=== PATIENT | male | born 1940 | race Caucasian/White ===

== ENCOUNTER 2017-05-01 09:16 | Day surgery (SDC) | payer OTHER ==
[2017-05-01] MEDS ORDERED: ASPIRIN EC 325 MG TAB PO ONE ×2 (09:17→10:08)
[2017-05-01] MEDS ORDERED: FAMOTIDINE 20 MG TAB PO ONE (09:17)
[2017-05-01] MEDS ORDERED: NS 1,000 ML IV ONE (09:17)
[2017-05-01] MEDS ORDERED: DIAZEPAM 5 MG TAB PO ONE (09:17)
[2017-05-01] MEDS ORDERED: diphenhydrAMINE 25 MG CAP PO ONE ×2 (09:17→10:07)
--- NOTE | 2017-05-01 09:45 | CPEKG ---
Heart Rate: 85 RR Interval: 706 P-R Interval: 188 QRSD Interval: 94 QT Interval: 368 QTC Interval: 438 P [place]: 72 QRS [place]: 2 T Wave [place]: 57 EKG Severity - BORDERLINE ECG - EKG Impression: SINUS RHYTHM EKG Impression: BORDERLINE R WAVE PROGRESSION, ANTERIOR LEADS Electronically Signed By: Andres Kaur 01-May-2017 15:52:31
[2017-05-01] MEDS ORDERED: FAMOTIDINE 20 MG TAB ONE (10:08)
[2017-05-01] MEDS ORDERED: DIAZEPAM 5 MG TAB ONE (10:08)
[2017-05-01 10:23] LABS: % IMMATURE GRANULYOCYTES 0.2 % (0.0-1.1); ABSOLUTE IMMATURE GRANULOCYTES 0.01 10^3/uL (0.00-0.10); ADD DIFF? NO; ADD MORPH? NO; ADD SCAN? NO; ATYPICAL LYMPHOCYTE FLAG 10 (0-99); FRAGMENT RBC FLAG 0 (0-99); HEMATOCRIT 41.1 % (40.0-51.0); HEMOGLOBIN 13.4 g/dL (13.7-17.5); LEFT SHIFT FLG 0 (0-99); LIPEMIA HEMOLYSIS FLAG 80 (0-99); MEAN CELL HEMOGLOBIN 31.8 pg (27.9-34.1); MEAN CELL HEMOGLOBIN CONCENTR. 32.6 g/dL (32.4-36.7); MEAN CELL VOLUME 97.4 fL (81.5-99.8); MEAN PLATELET VOLUME 10.5 fL (8.7-11.7); PLATELET CLUMPS FLAG 0 (0-99); PLATELET COUNT 153 10^3/uL (150-400); RED BLOOD CELL COUNT 4.22 10^6/uL (4.40-6.38); RED CELL DISTRIBUTION WIDTH 14.9 % (11.5-15.2)
[2017-05-01 10:34] LABS: INR 1.26 (0.83-1.16); PROTIME(PATIENT) 15.8 SEC (12.0-15.0)
[2017-05-01 10:48] LABS: ANION GAP 11 mEq/L (8-16); CALCIUM 9.3 mg/dL (8.5-10.4); CARBON DIOXIDE 25 mEq/l (22-31); CHLORIDE 105 mEq/L (97-110); CHOLESTEROL 132 mg/dL (140-220); CHOLESTEROL/HDL RATIO 2.81 RATIO (1.00-4.97); GLOMERULAR FILTRATION RATE > 60; GLUCOSE 120 mg/dL (70-100); HIGH DENSITY LIPOPROTEIN 47 mg/dL (40-65); LDL/HDL RATIO 1.38 RATIO (1.00-3.64); LOW DENSITY LIPOPROTEIN 65 mg/dL (80-100); MAGNESIUM 1.2 mg/dL (1.6-2.3); NON-HIGH DENSITY LIPOPROTEIN 85 mg/dL (90-129); POTASSIUM 5.5 mEq/L (3.5-5.2); SODIUM 141 mEq/L (134-144); TRIGLYCERIDE 100 mg/dL (40-150); VERY LOW DENSITY LIPOPROTEINS 20 mg/dL (8-25)
[2017-05-01] MEDS ORDERED: fentaNYL 100 MCG/2 ML INJ ONE (10:58)
[2017-05-01] MEDS ORDERED: LIDOCAINE 1% 300 MG/30 ML SDV ONE (10:58)
[2017-05-01] MEDS ORDERED: MIDAZOLAM 2 MG/2 ML VIAL ONE (10:59)
[2017-05-01] MEDS ORDERED: VERAPAMIL 5 MG/2 ML VIAL ONE (10:59)
[2017-05-01] MEDS ORDERED: IOPAMIDOL (ISOVUE-370) 150 ML BTL IV ONE (10:59)
[2017-05-01] MEDS ORDERED: HEPARIN 10,000 UNIT/10 ML MDV ONE (10:59)
[2017-05-01] MEDS ORDERED: MAGNESIUM SULF 1 GM/DEXTROSE 100 ML BAG IV ONE (11:18)
--- NOTE | 2017-05-01 12:06 | PDDXCAT ---
Diagnostic Cath Note - . Date: 05/01/17 Concrete Technician: Sarahi Indication: other ([place] [employer] functional class 3 exertional dyspnea. Abnormal stress myocardial perfusion imaging study indicating a large reversible inferolateral perfusion defect.) - Procedure Access: right wrist Procedure: left heart catheterization, coronary angiography, left ventriculogram - Materials Left Heart Cath size: 5F Left Heart Cath materials: JL3.5, JR4.0, pigtail - Findings-Left Heart Catheterization LM: Large caliber vessel. Bifurcates into the left anterior descending and circumflex. Angiographically normal. LAD: Transapical vessel. 3 diagonal branches identified. Minimal (less than 20 %) luminal irregularities without obstructive lesions. LCX: Moderate caliber vessel. 2 obtuse marginal branches and a single posterolateral branch identified. Minimal (less than 20%) luminal irregularities without obstructive lesions. RCA: Small caliber vessel. Single PDA without posterolaterals. Minimal (less than 20%) luminal irregularities without obstructive lesions. EDP: 20 mmHg. LVEF: 65%. Wall motion: No regional wall motion abnormalities. - Findings-Right Heart Catheterization AO: 126/67/92 mmHg. Complications: Her none. Estimated blood loss: <50ml Closure method: TR Band Assessment: dly elevated end-diastolic pressure.No significant obstructive epicardial coronary disease. Normal left ventricular systolic function without ischemic wall motion abnormalities. No valvular heart disease identified. Plan: Aggressive risk factor modification. Weight loss and exercise to improve functional capacity. Intervention: None.
[2017-05-01] MEDS ORDERED: ENOXAPARIN 80 MG/0.8 ML SYR SC ONE (14:30)
== END 2017-05-01 15:29 | disposition home or self-care (01) ==
LOC: FCATH 09:16
PROVIDERS: ATTEND Internal Medicine Cardiovascular Disease
DX: R94.39 Abnormal result of other cardiovascular function study (principal); I25.10 Atherosclerotic heart disease of native coronary artery without angina pectoris; I87.2 Venous insufficiency (chronic) (peripheral); M10.9 Gout, unspecified; I10 Essential (primary) hypertension; G47.33 Obstructive sleep apnea (adult) (pediatric); E66.9 Obesity, unspecified; Z68.43 Body mass index [BMI] 50.0-59.9, adult; Z86.711 Personal history of pulmonary embolism; Z86.718 Personal history of other venous thrombosis and embolism; Z87.442 Personal history of urinary calculi; Z85.038 Personal history of other malignant neoplasm of large intestine; Z85.46 Personal history of malignant neoplasm of prostate; Z79.01 Long term (current) use of anticoagulants
CPT/HCPCS: 93005; 93458; C1769; J1644; J1650; J2250; J3010; J3475; Q9967